=== PATIENT | female | born 1960 | race Caucasian/White ===

== ENCOUNTER 2023-09-24 05:04 | Observation (INO) ==
--- NOTE | 2023-09-03 11:45 | PAT Medication Instructions ---
Medication Instructions Date of Service September 03, 2023 Home Medications Medication Instructions Recorded Ebenezer Willard #1 ea 08/15/23 ascorbic acid (vitamin C) 250 mg chewable tablet 250 mg PO DAILY esomeprazole magnesium 40 mg capsule,delayed release 40 mg PO QAM evolocumab 140 mg/mL subcutaneous pen injector (Repatha SureClick) 140 mg subcut .q month krill 500 mg-omega-3 150 mg-dha 45 mg-epa 75 at-iudtusj-eqztk capsule 1 cap PO BID lysine 1,000 mg tablet 1,000 mg PO DAILY mecobalamin (vitamin B12) 5,000 mcg chewable tablet 5,000 mcg PO DAILY multivitamin (Daily Multi-Vitamin tablet) 1 tab PO DAILY zinc acetate 25 mg (zinc) capsule 25 mg PO DAILY COLLAGEN - BIOTIN 1 dose PO UD amino acids (Amino Acid capsule) 1 cap PO UD aspirin 81 mg tablet,delayed release 81 mg PO BID ASK your prescriber and surgeon evolocumab 140 mg/mL subcutaneous pen injector (Repatha SureClick) 140 mg subcut .q month aspirin 81 mg tablet,delayed release 81 mg PO BID STOP taking 2 weeks before surgery krill 500 mg-omega-3 150 mg-dha 45 mg-epa 75 yq-kxpchjg-kyprb capsule 1 cap PO BID lysine 1,000 mg tablet 1,000 mg PO DAILY COLLAGEN - BIOTIN 1 dose PO UD amino acids (Amino Acid capsule) 1 cap PO UD (unless directed otherwise by surgeon) DO NOT take the morning of surgery ascorbic acid (vitamin C) 250 mg chewable tablet 250 mg PO DAILY mecobalamin (vitamin B12) 5,000 mcg chewable tablet 5,000 mcg PO DAILY multivitamin (Daily Multi-Vitamin tablet) 1 tab PO DAILY zinc acetate 25 mg (zinc) capsule 25 mg PO DAILY Take morning of surgery With a small sip of water, OTHERWISE NOTHING TO EAT OR DRINK AFTER MIDNIGHT: esomeprazole magnesium 40 mg capsule,delayed release 40 mg PO QAM Other Notes If you have any questions please call us at [phone] or [phone] or [phone] or [phone]
--- NOTE | 2023-09-08 10:53 | Anesthesiology Consultation ---
Date of Service September 08, 2023 Assessment & Plan (1) Encounter for pre-operative examination: - Infectious disease screening: Per assessment on 09/08/23: No known infectious disease contacts or current infectious disease symptoms in past 10+ days. No noted recent Covid positive test result. - Outpatient joint assessment: Pt currently scheduled for inpatient pathway. If surgeon requests review for outpatient joint pathway, patient is an acceptable candidate for outpatient joint program from anesthesia standpoint pending surgeon's office assessment that patient is motivated, has good support and completes [facility] Program preop requirements. - Cardiology visit (04/18/23): "Patient is here today for a 1 year follow-up.. Denies chest pain on exertion, dizziness, dyspnea on exertion, orthopnea and palpitations.. Familial hypercholesterolemia.. Family history of ischemic heart disease.. Electrocardiogram abnormal" > Echo/stress test ordered- performed 06/2023 and unremarkable. Chart Review Chart Review: Acceptable Risk for Surgery and Patient seen in Pre Admission Testing Teaching & Discussion Pre-Anesthesia Teaching/Discussion Notes: Instructed NPO after midnight before surgery,except medications with 15 cc of water. Medication instructions provided according to the PAT guidelines. History Surgery Operation Date: 09/24/23 07:15 Proposed Procedures p Left Total Hip Arthroplasty - Parveen Gomez MD Height/Weight Height: 5 ft 2 in Weight: 76.1 kg Allergies Allergy/AdvReac Type Severity Reaction Status Date / Time adhesive Allergy Intermediate RASH Verified 09/02/23 08:02 Bactrim Allergy Intermediate RASH Unverified 10/26/10 10:40 clarithromycin Allergy Intermediate RASH Verified 09/02/23 08:02 latex Allergy Intermediate RASH Verified 09/02/23 08:02 morphine Allergy Intermediate HIVES Verified 09/02/23 08:02 Penicillins Allergy Intermediate HIVES Verified 09/02/23 08:02 sulfamethoxazole [Bactrim] Allergy Intermediate RASH Verified 09/02/23 08:02 trimethoprim [Bactrim] Allergy Intermediate RASH Verified 09/02/23 08:02 omeprazole Allergy Unknown ITCHY SCALP Verified 09/02/23 08:02 pantoprazole Allergy Unknown ITCHY SCALP Verified 09/02/23 08:02 Medications Home Medications Medication Instructions Recorded Confirmed Last Taken ascorbic acid (vitamin C) 250 mg 250 mg PO DAILY 05/01/23 09/02/23 Unknown chewable tablet esomeprazole magnesium 40 mg 40 mg PO QAM 05/01/23 09/02/23 Unknown capsule,delayed release evolocumab 140 mg/mL subcutaneous 140 mg subcut .q month 05/01/23 09/02/23 Unknown pen injector (isajoseph Cantu) krill 500 mg-omega-3 150 mg-dha 45 1 cap PO BID 05/01/23 09/02/23 Unknown mg-epa 75 lz-eresqgt-pnjnh capsule lysine 1,000 mg tablet 1,000 mg PO DAILY 05/01/23 09/02/23 Unknown mecobalamin (vitamin B12) 5,000 5,000 mcg PO DAILY 05/01/23 09/02/23 Unknown mcg chewable tablet multivitamin (Daily Multi-Vitamin 1 tab PO DAILY 05/01/23 09/02/23 Unknown tablet) zinc acetate 25 mg (zinc) capsule 25 mg PO DAILY 05/01/23 09/02/23 Unknown COLLAGEN - BIOTIN 1 dose PO UD 05/20/23 09/02/23 Unknown Wheeled Walker #1 ea 08/15/23 09/02/23 Unknown amino acids (Amino Acid capsule) 1 cap PO UD 09/02/23 09/02/23 Unknown aspirin 81 mg tablet,delayed 81 mg PO BID 09/02/23 09/02/23 Unknown release Advil 400 mg PO DIRECTED PRN Pain 09/08/23 09/08/23 Unknown Past Medical History Medical History GERD (gastroesophageal reflux disease) History of COVID-19 2020- PNA > resolved Hyperlipemia Taking Repatha Bilateral hip joint arthritis Exercise / Class Metabolic Activity II 4-5 Yardwork/Stairs/Walk up hill Past Family History Family History Mother Diabetes Father Diabetes Grandmother (Paternal) Colon cancer Past Surgical History Surgical History Nausea and vomiting after administration of anesthetic agent History of bladder surgery sling History of colonoscopy History of tonsillectomy History of hernia repair History of wisdom tooth extraction History of hysterectomy History of total left knee replacement History of total right knee replacement History of varicose vein ligation Past Anesthesia History No Hx of Anesthesia Complications and No Family Hx of Anesthesia Complications History of PONV No Hx of Motion Sickness and History of PONV Social History Smoking Status: Never smoker Do You Dip or Chew Tobacco: No Hx Alcohol Use: No Hx Substance Use: No substance use type: does not use Review of Systems Patient denies chest pain, shortness of breath, dyspnea on exertion, fever, chills, cough, wheezing, palpitations. Physical Exam Vital Signs VITALS BP 124/80 P 67 TEMP 98.0 SP02 97%RA RESP 18 PHYSICAL Full cervical extension range of motion. Full TMJ range of motion. TMD 3 finger breaths Mallampati Score 2 Dentition: right lower side missing Lungs: clear throughout to auscultation Cardiac: regular rate and rhythm, no murmurs noted Spine: normal Carotid arteries: negative bruit Extremities: no LE edema Lab Results Anesthesia Preop Results Results Anesthesia Widget: WBC 5.12 K/ul (4.8-10.8) 09/08/23 Hgb 12.8 g/dl (12.0-16.0) 09/08/23 Hct 37.5 % (37.0-47.0) 09/08/23 Plt 273 K/uL (130-400) 09/08/23 Na 140 mmol/L (136-145) 09/08/23 K 3.8 mmol/L (3.5-5.1) 09/08/23 Cl 105 mmol/L (98-107) 09/08/23 CO2 29 mmol/L (21-32) 09/08/23 BUN 15 mg/dl (6-23) 09/08/23 Creat 0.62 mg/dl (0.6-1.2) 09/08/23 Glucose Level 93 mg/dl (70-99(Fasting)) 09/08/23 PT 10.5 Seconds (9.0-12.0) 09/08/23 PTT 27 Seconds (21-31) 09/08/23 INR 1.0 (0.9-1.1) 09/08/23 Blood Type A Positive 09/08/23 Antibody Screen NEGATIVE 09/08/23 Testing Electrocardiogram Date: 04/18/23 SR at 80bpm. Horizontal axis. Anterolateral infarct. Minimal mid-precordial repolarization disturbance secondary to infarct. Flat or low negative T in V3 V4 V5 Subsequent cardiology-ordered Echo and stress test done 06/2023* Chest X-Ray Date: 09/08/23 FINDINGS: Cardiomediastinal and hilar silhouettes are within normal limits. No pneumothorax, pleural effusion or airspace consolidation. Bones appear grossly intact. IMPRESSION: No acute process. Echocardiogram Date: 07/04/23 EF 55%. Borderline concentric LVH. Mild AI/TI. Normal pulmonary artery pressures. Stress Test Date: 07/04/23 Based upon EKG criteria, this test is negative. Based upon nuclear imaging findings there is no evidence of myocardial ischemia or infarction.
--- NOTE | 2023-09-21 09:04 | History & Physical Report ---
Date of Service September 21, 2023 Assessment & Plan (1) Bilateral hip joint arthritis: 63-year-old female with a history of bilateral bilateral knee replacements done over a decade ago with a bilateral hip arthritis left side bit worse than the right. She is failed conservative treatment. She like to proceed with hip replacement. Plan: Continue with left total hip replacement. The risks Mente this procedure explained the patient clued but not limited to DVT PE infection neurological and vascular bleeding palm pain limb range of motion sepsis fairly with symptoms incomplete relief of symptoms fracture leg length inequality, dislocation, etc. The patient understands and desires to proceed. Informed consent was obtained. We will have to make some measurements that she is probably going to need her right hip done in the ktj-wre-dwstchx future. She is planned to stay in the hospital overnight and likely discharge postop day 1 if she is doing okay. Will plan on dad DVT prophylaxis including thigh-high teds, SCDs, aspirin twice a day. She is can use energy physical therapy. History of Present Illness Chief Complaint: . Bilateral hip pain and discomfort left side greater than the right. Primary Care Provider: Aresnio Schaffer . Patient is a 63-year-old female well-known to me from previous knee replacements done over a decade ago. She is got about a year history of gradually increasing progressive hip pain discomfort left side bit worse than right. Describes lateral hip pain groin pain thigh pain rating down to her knee. We tried some injections in the bursa which really did not help much at all. Pain has become more disabling. Is mostly groin and thigh pain. She limps more as the day goes on. She now like to have her left hip replaced. She does have a history of knee replacements on both sides for the left side was done 13 years ago the right side 11 years ago. Allergies Allergy/AdvReac Type Severity Reaction Status Date / Time adhesive Allergy Intermediate RASH Verified 09/02/23 08:02 Bactrim Allergy Intermediate RASH Unverified 10/26/10 10:40 clarithromycin Allergy Intermediate RASH Verified 09/02/23 08:02 latex Allergy Intermediate RASH Verified 09/02/23 08:02 morphine Allergy Intermediate HIVES Verified 09/02/23 08:02 Penicillins Allergy Intermediate HIVES Verified 09/02/23 08:02 sulfamethoxazole [Bactrim] Allergy Intermediate RASH Verified 09/02/23 08:02 trimethoprim [Bactrim] Allergy Intermediate RASH Verified 09/02/23 08:02 omeprazole Allergy Unknown ITCHY SCALP Verified 09/02/23 08:02 pantoprazole Allergy Unknown ITCHY SCALP Verified 09/02/23 08:02 Home Medications Medication Instructions Recorded Confirmed Type ascorbic acid (vitamin C) 250 mg 250 mg PO DAILY 05/01/23 09/02/23 History chewable tablet esomeprazole magnesium 40 mg 40 mg PO QAM 05/01/23 09/02/23 History capsule,delayed release evolocumab 140 mg/mL subcutaneous 140 mg subcut .q month 05/01/23 09/02/23 History pen injector (Karoline Cantu) krill 500 mg-omega-3 150 mg-dha 45 1 cap PO BID 05/01/23 09/02/23 History mg-epa 75 mv-vqygzbb-jmqxq capsule lysine 1,000 mg tablet 1,000 mg PO DAILY 05/01/23 09/02/23 History mecobalamin (vitamin B12) 5,000 5,000 mcg PO DAILY 05/01/23 09/02/23 History mcg chewable tablet multivitamin (Daily Multi-Vitamin 1 tab PO DAILY 05/01/23 09/02/23 History tablet) zinc acetate 25 mg (zinc) capsule 25 mg PO DAILY 05/01/23 09/02/23 History COLLAGEN - BIOTIN 1 dose PO UD 05/20/23 09/02/23 History Wheeled Walker #1 ea 08/15/23 09/02/23 Rx amino acids (Amino Acid capsule) 1 cap PO UD 09/02/23 09/02/23 History aspirin 81 mg tablet,delayed 81 mg PO BID 09/02/23 09/02/23 History release Advil 400 mg PO DIRECTED PRN Pain 09/08/23 09/08/23 History Past Med/Surg History Medical History GERD (gastroesophageal reflux disease) History of COVID-19 2020- PNA > resolved Hyperlipemia Taking Repatha Bilateral hip joint arthritis Surgical History Nausea and vomiting after administration of anesthetic agent History of bladder surgery sling History of colonoscopy History of tonsillectomy History of hernia repair History of wisdom tooth extraction History of hysterectomy History of total left knee replacement History of total right knee replacement History of varicose vein ligation Family History Mother Diabetes Father Diabetes Grandmother (Paternal) Colon cancer Social History Smoking Status: Never smoker Second Hand Exposure: No; Do You Dip or Chew Tobacco: No; Hx Alcohol Use: No Hx Substance Use: No Preferred Language: Niuean Communication Ability: Effective [place]agli[place] Mechanic Required: No Beliefs That Will Affect Care: None Current Living Situation: Spouse Feels Safe at Home: Yes Assistive Devices: Glasses Review of Systems All systems reviewed & are unremarkable except as noted in HPI & below. Physical Exam . Physical examination reveals a pleasant middle-age female. Walks with a bit of a waddling gait. Leg lengths clinically appear pretty equal. She got stiffness and pain with hip motion on both sides. She can internally rotate to neutral about both sides. Negative straight leg raise. Knee incisions are healed nicely without signs of swelling. She is neurologically intact. Constitutional WD/WN, vitals as above Neck trachea midline, no thyromegaly Respiratory normal respiratory effort, lungs clear to auscultation Cardiovascular RRR, no murmur, no edema Gastrointestinal (Abdomen) normal bowel sounds, soft, nontender, no hepatosplenomegaly Results & Data Results & Data Laboratory Results . Diagnostic Findings . X-rays of both hips were reviewed. It shows advanced hip arthritis left side bit worse than the right. Got complete loss of the joint space on the left side. Not much osteophyte formation. She does have quite a bit of offset with a varus alignment to her neck. PG Care Time/CCT Total # of Minutes Spent Total Time Spent with Patient: Total time spent is greater than 50% in coordination of care (as documented) at patient's floor/unit and/or counseling patient: Coding Level of Care Code None Diagnoses Bilateral hip joint arthritis M16.0
[~2023-09-24 05:04] MED LIST: ALLERGY Noted to ORDERED Medication SCH
[2023-09-24] MEDS ORDERED: TRANEXAMIC ACID 1,000 MG **IV Pre-op IV SCH (06:00)
[2023-09-24] MEDS ORDERED: LR 60ML/HR IV SCH (06:00)
[2023-09-24] MEDS ORDERED: METOCLOPRAMIDE HCL 10 MG TABLET PO SCH (06:00)
[2023-09-24] MEDS ORDERED: ACETAMINOPHEN 500 MG TAB PO SCH (06:00)
[2023-09-24] MEDS ORDERED: Scopolamine 1 MG TDSY TD SCH (06:00)
[2023-09-24] MEDS ORDERED: CeleBREX 200 MG CAP PO SCH (06:00)
[2023-09-24] MEDS ORDERED: FAMOTIDINE 20 MG TAB PO SCH (06:00)
[2023-09-24] MEDS ORDERED: LR 500ML BOLUS, THEN 15ML/HR IV SCH (06:00)
[2023-09-24] MEDS ORDERED: dexAMETHasone**PF** 10 MG/ML VIAL IV SCH (06:00)
[2023-09-24] MEDS ORDERED: BUPIVACAINE 0.5 % 5 MG/1 ML PF 10ML VIAL ONE (06:11)
[2023-09-24] MEDS ORDERED: LIDOCAINE 2% 2 ML VIAL/AMP(20MG/ML) INFIL ONE (06:32)
[2023-09-24] MEDS ORDERED: PROPOFOL IV EMULSION 10 MG/ML 20 ML VIAL IV ONE (06:32)
[2023-09-24] MEDS ORDERED: MIDAZOLAM HCL 1 MG/ML 2ML VIAL ONE ×2 (06:32→07:34)
[2023-09-24] MEDS ORDERED: fentaNYL citrate PF 100 MCG/2 ML VIAL ONE (06:33)
[2023-09-24] MEDS ORDERED: fentaNYL citrate PF 100 MCG/2 ML VIAL IV PRN (06:35)
[2023-09-24] MEDS ORDERED: ONDANSETRON INJ 2 MG/ML 2 ML VIAL IV PRN ×2 (06:35→09:45)
[2023-09-24] MEDS ORDERED: ATROPINE SULFATE 0.1 MG/ML 10ML SYR IV PRN (06:35)
[2023-09-24] MEDS ORDERED: ePHEDrine sulfate 50 MG/ML AMP IV PRN (06:35)
[2023-09-24] MEDS ORDERED: ceFAZolin 2,000 MG/15 ML IV PUSH IV ONE (06:46)
--- NOTE | 2023-09-24 06:53 | History & Physical Bridge Note ---
Date of Service September 24, 2023 History & Physical Bridge Note I have examined the patient, reviewed the History & Physical and in the interval since the performance of the History & Physical I have noted the following changes of clinical significance: no changes noted
[2023-09-24] MEDS ORDERED: BUPIVACAINE/EPINEPHRINE 0.5% MPF 1:200,000 30 ML VIAL ONE (06:55)
[2023-09-24] MEDS ORDERED: ePHEDrine sulfate 50 MG/ML AMP ONE (07:38)
[2023-09-24] MEDS ORDERED: ONDANSETRON INJ 2 MG/ML 2 ML VIAL ONE (07:38)
[2023-09-24] MEDS ORDERED: PHENYLEPHRINE 100MCG/ML 10ML SYR IV ONE (07:55)
--- NOTE | 2023-09-24 08:47 | Operative Report ---
PG Post Operative Report Pre & Post Diagnosis Operation Date: 09/24/23 07:00 Pre-Op Diagnosis: Left Hip Advanced Degenerative Joint Disease Post-Op Diagnosis: Left Hip Advanced Degenerative Joint Disease I identified the patient and participated in the time-out.: Yes Procedure Operation Date: 09/24/23 07:00 Actual Procedures p Left Total Hip Arthroplasty--Uncemented(Left) - Parveen Gomez MD Surgeon Parveen Gomez MD Assurance Manager Insurance Clayton Gabriel PA-C Estimated Blood Loss 200 Findings Consistent with Post-Op Diagnosis Operative findings were advanced left hip DJD. She had extensive grade 4 buif-kb-uqkx disease of the femoral head and acetabulum. Some small acetabular osteophytes. Moderate-sized joint effusion. Specimens Left femoral head sent for pathology. Anesthesia Type Spinal MAC Complications none Disposition Accompanied Patient To Recovery: No Indications Patient is a 63-year-old female who has had a host of orthopedic issues inside both knees replaced in the past. Over the past several years she has developed increased pain discomfort both hips left side bit worse than right. She failed conservative measures. She elected proceed with total hip arthroplasty. Description of Procedure Operative implants consist of: 1 Biomet G7 size 48 mm acetabular shell. 2. 6.5 cancellous acetabular screws 1 at 35 mm length 1 to 20 mm length. 3. [place] hole eliminator. 4. Highly cross-linked polyethylene liner with a 48 mm outer diameter 32 mm inner diameter. 5. DePuy Corail a size 9 KLA femoral stem. 6. +5/32 mm ceramic articular ball. The patient was taken to the operating, identified, placed on the operating table in supine and supine position. All contractors were properly padded. IV antibiotics provided by anesthesia team. A spinal anesthetic had been implemented holding area. Gallegos catheter was placed in sterile fashion. The patient then placed in the right lateral decubitus position. An axillary roll was placed. Distal Birkett position was used for positioning. The left hip and leg were then prepped and draped in usual sterile fashion. A posterolateral approach to the left hip was then performed to a curvilinear i ncision centered over the greater trochanter. Sharp dissection scalp through subcutaneous tissue down of the IT band gluteal fascia the IT band gluteal fascia was sized longitudinally in line with skin incision. The underlying greater bursa was excised. The piriformis and external rotators along with the posterior hip joint capsule were released from the posterior aspect of the hip as a single layer. Great care was taken throughout the procedure protect the sciatic nerve at all times. Hip was internally rotated and dislocated. Femoral neck osteotomy cut was made with a Final Cut about 5 mm above the lesser trochanter. Femoral head was removed and sent for pathology. The femur was retracted anteriorly. Attention drawn the acetabulum. The acetabular labrum was excised. The pulmonary fat was excised. Sequential reaming the acetabular was then performed again with size 43 and progressing up to 47. I did ream a little bit with a 48 reamer and then placed a 48 mm Biomet G7 acetabular shell in about 40 degrees lateral opening and 20 degrees anteversion. It was fixed with two 6.5 cancellous acetabular screws. Trial liner was placed. Attention drawn the femur. The proximal femur was then with a Blueliv cutter followed by canal finder. I then broached beginning with an 8. We trialed the hip with several options. Her distal canal was very narrow. Gait had a snug fit. She had a lot of offset so I wanted to try and get to a standard KLA stem with 125 degree angle to increase offset. Therefore we broached up to a 9. We could not quite get the implant the whole way down and was left about a millimeter proud. I trialed the hip and the +5 articular ball seem to recreate appropriate soft tissue tension. It was fully stable full extension and external rotation flexion to 90 degrees internal Tatian to 50+ degrees. Leg lengths were equal. I elected to place these implants. Nupathe all trial implants were removed. [place] maintenance electrician was placed. Highly cross-linked polyethylene liner was placed. A size 9 KLA femoral stem was impacted in position. Once again we left this about a millimeter proud. A +5/32 mm articular ball was then placed. The hip was locat ed and once again found to be stable. Attention drawn toward closing. The wound was irrigated coconuts pulsatile lavage solution. I did inject locally with 60 cc of half percent Marcaine with epinephrine. The posterior capsule and external rotators were then repaired through drill holes in the posterior trochanter with #2 Tycron suture. The IT band gluteal fascia then closed in 1 PDS in running fashion for subcutaneous tissue then closed with 2 Dexon suture in a buried interrupted fashion. Skin was closed skin anirudh. A sterile dressing was Xeroform, 4 fours, ABD pad and foam tape was applied. The patient then transferred to the recovery room in stable condition. Patient tolerated the procedure well and there were no complications. Clayton Gabriel, my physician hotel administrative assistant, was present for the entire procedure. His assistance was essential and required for appropriate patient positioning, prepping and draping, surgical exposure, performing the technical details of the operation, placement the implants, closure of the wound, and placement of the sterile bandage. I attest to the content of the Intraoperative Record and any orders documented therein. Any exceptions are noted below.
[2023-09-24] MEDS ORDERED: traMADol HCL 50 MG TABLET PO PRN (09:45)
[2023-09-24] MEDS ORDERED: MAGNESIUM HYDROXIDE SUSP 30 ML UDC PO PRN (09:45)
[2023-09-24] MEDS ORDERED: COLLAGEN BIOTIN PO SCH (09:45)
[2023-09-24] MEDS ORDERED: ASCORBIC ACID 250 MG PO SCH (09:45)
[2023-09-24] MEDS ORDERED: SODIUM CHLORIDE 0.9% 1,000 ML IV SCH (09:45)
[2023-09-24] MEDS ORDERED: NALOXONE HCL 0.4 MG/1 ML VIAL/CARP IV PRN (09:45)
[2023-09-24] MEDS ORDERED: diphenhydrAMINE Capsule 25 MG CAP PO PRN (09:45)
[2023-09-24] MEDS ORDERED: METOCLOPRAMIDE HCL INJ 5 MG/ML 2 ML VIAL IV PRN (09:45)
[2023-09-24] MEDS ORDERED: HYDROmorphone INJ 0.5 MG/0.5 ML SYR IV PRN (09:45)
[2023-09-24] MEDS ORDERED: SENNA 8.6 MG TAB PO SCH ×2 (09:45→21:00)
[2023-09-24] MEDS ORDERED: NON-FORMULARY MEDICATION (Multivitamin [Daily Multi-Vitamin] tablet) PO SCH (09:45)
[2023-09-24] MEDS ORDERED: ALUMINUM/MAGNESIUM SUSP 30 ML UDC PO PRN (09:45)
[2023-09-24] MEDS ORDERED: bisacodyL 10 MG SUPP PR PRN (09:45)
[2023-09-24] MEDS ORDERED: KRILL OM DHA EPA PHOSPHO AST PO SCH (09:45)
[2023-09-24] MEDS ORDERED: NON-FORMULARY MEDICATION (Amino Acids [Amino Acid] Capsule) PO SCH (09:45)
[2023-09-24] MEDS: CYANOCOBALAMIN (B-12) 2,500 MCG TABLET SL SCH (10:30)
[2023-09-24] MEDS: PANTOprazole 40 MG TAB PO SCH (10:32)
[2023-09-24] MEDS: MULTIVITAMIN TAB PO SCH (11:03)
[2023-09-24] MEDS: DOCUSATE SODIUM 100 MG CAP PO SCH ×2 (11:03→20:40)
[2023-09-24] MEDS: ASPIRIN 81 MG ECTAB PO SCH ×2 (11:03→20:40)
--- NOTE | 2023-09-24 11:12 | XRay Report ---
XR hip 1V LT w pelvis CLINICAL HISTORY: Postoperative evaluation. COMPARISON: Left hip radiographs May 01, 2023. FINDINGS: Alignment of the total left hip arthroplasty is anatomic. There is no periprosthetic fract ure or unexpected radiopaque foreign body. There are acetabular screws and skin anirudh. Right hip lilian int space narrowing with osteophytosis is present. IMPRESSION: Expected findings following total left hip arthroplasty. ACT 112: Negative or not required by law. Electronically signed by: Luis Colindres M.D. 09/24/2023 11:10 AM
[2023-09-24] MEDS: ZINC SULFATE 220 MG CAPSULE PO SCH (11:43)
[2023-09-24] MEDS: KETOROLAC 30 MG/ML VIAL IV SCH ×3 (11:43→23:01)
--- NOTE | 2023-09-24 12:19 | Anesthesiology Progress Note ---
Date of Service September 24, 2023 Anesthesia Post Procedure Vital Signs Vital Signs: Temp Pulse Pulse Resp BP Pulse Ox O2 Del Method 09/24/23 11:15 98.2 F 80 18 116/62 98 Room Air 09/24/23 10:08 72 18 110/70 96 Room Air 09/24/23 09:45 97.5 F L 72 18 118/72 96 Room Air 09/24/23 09:25 97.3 F L 68 15 130/66 97 Room Air 09/24/23 09:15 97.3 F L 62 16 119/67 95 Room Air 09/24/23 09:05 63 16 119/52 L 99 Room Air 09/24/23 08:55 70 19 120/56 L 99 Oxymask 09/24/23 08:45 74 16 123/57 L 97 Oxymask 09/24/23 08:36 97.5 F L 73 16 125/61 97 Oxymask 09/24/23 05:50 98.2 F 68 18 154/75 H 95 Room Air O2 Flow Rate 09/24/23 11:15 09/24/23 10:08 09/24/23 09:45 09/24/23 09:25 09/24/23 09:15 09/24/23 09:05 09/24/23 08:55 1 09/24/23 08:45 3 09/24/23 08:36 5 09/24/23 05:50 Transfer of Care Handoff Completed per policy Notes Mental Status: alert / awake / arousable and participated in evaluation Patient Amnestic to Procedure: Yes Nausea / Vomiting: adequately controlled Pain: adequately controlled Airway Patency, RR, SpO2: stable & adequate BP & HR: stable & adequate Hydration State: stable & adequate Neuraxial Anesthesia: was administered and sensory block is resolving Anesthetic Complications: no major complications apparent and Pt Satisfied with anesthetic care
[2023-09-24] MEDS: ACETAMINOPHEN 500 MG TAB PO SCH ×2 (13:13→23:00)
[2023-09-24] MEDS ORDERED: TRANEXAMIC ACID / 0.7% NACL 1,000 MG/100 ML BAG IV SCH (15:00)
[2023-09-24] MEDS: ceFAZolin 1000MG 1,000 MG/7.5 ML SYR IV SCH ×2 (16:59→23:00)
[2023-09-24] MEDS: Scopolamine CHECK PATCH PLACEMENT SCH ×2 (16:59→23:04)
[2023-09-24] MEDS: ASCORBIC ACID 500 MG TAB PO SCH (17:01)
[2023-09-25] MEDS: KETOROLAC 30 MG/ML VIAL IV SCH (05:05)
[2023-09-25] MEDS: ACETAMINOPHEN 500 MG TAB PO SCH (05:05)
[2023-09-25 07:27] LABS: Basophils # (auto) 0.02 K/uL (0.00-0.20); Basophils % (auto) 0.2 %; Hematocrit (blood only) 32.2 % (37.0-47.0); Hemoglobin 10.7 g/dl (12.0-16.0); Immature Granulocytes # (auto) 0.06 K/uL (0.01-0.20); Immature Granulocytes % (auto) 0.6 %; Lymphocytes # (auto) 1.57 K/uL (1.20-3.40); Lymphocytes % (auto) 15.3 %; Mean Corpuscular Hemoglobin 30.8 pg (25.0-34.0); Mean Corpuscular Hgb Conc 33.2 g/dL (32.0-36.0); Mean Corpuscular Volume 92.8 fL (80.0-100.0); Mean Platelet Volume 10.6 fL (9.4-12.4); Monocytes # (auto) 0.88 K/uL (0.11-0.59); Monocytes % (auto) 8.6 %; Neutrophils # (auto) 7.72 K/uL (1.40-6.50); Neutrophils % (auto) 75.3 %; Platelet Count 241 K/uL (130-400); RDW Coefficient of Variation 12.8 % (11.5-14.5); RDW Standard Deviation 43.4 fL (36.4-46.3); Red Blood Count 3.47 M/uL (4.20-5.40); White Blood Count 10.25 K/ul (4.8-10.8)
--- NOTE | 2023-09-25 07:35 | Orthopedic Progress Note ---
Date of Service September 25, 2023 Assessment & Plan (1) Status post left hip replacement: Overall she is doing quite well today with good pain control to the left hip. She will work with physical therapy later today to work on ambulation and range of motion exercises. She is on aspirin for DVT prophylaxis. She can be discharged home later today after her physical therapy evaluation. She will follow-up in [address] Gomez for postoperative care. Kirsten Sauer was seen and evaluated at bedside this morning resting comfortably in no apparent distress. She notes that she has been up and out of bed and ambulating back and forth from bed to chair with no issues. She has yet to work with physical therapy as of this morning. She denies any other concerns at this time. Review of Systems All systems reviewed & are unremarkable except as noted in HPI & below. Physical Exam . On physical examination of the left hip, dressings are in place, clean, dry, and intact with Prevena maintaining negative pressure. Her left leg is out in full extension. She has active plantarflexion dorsiflexion to the left ankle. +2 DP and PT pulses. Less than 2-second capillary refill. Normal sensation. Neurovascular intact. Results & Data Results & Data Laboratory Results . Diagnostic Findings . Postoperative x-rays of the left hip show the prosthesis to be in anatomical alignment with no signs of fracture complication or loosening. PG Care Time/CCT Total # of Minutes Spent Total Time Spent with Patient: Total time spent is greater than 50% in coordination of care (as documented) at patient's floor/unit and/or counseling patient: Coding Level of Care Code 82726 Post Operative Follow-Up Diagnoses Status post left hip replacement Z96.642
--- NOTE | 2023-09-25 07:37 | Discharge Summary ---
Date of Service September 25, 2023 Admission HPI (Per Admitting) . Patient is a 63-year-old female well-known to me from previous knee replacements done over a decade ago. She is got about a year history of gradually increasing progressive hip pain discomfort left side bit worse than right. Describes lateral hip pain groin pain thigh pain rating down to her knee. We tried some injections in the bursa which really did not help much at all. Pain has become more disabling. Is mostly groin and thigh pain. She limps more as the day goes on. She now like to have her left hip replaced. She does have a history of knee replacements on both sides for the left side was done 13 years ago the right side 11 years ago. Admission Exam (Per Admitting) . Physical examination reveals a pleasant middle-age female. Walks with a bit of a waddling gait. Leg lengths clinically appear pretty equal. She got stiffness and pain with hip motion on both sides. She can internally rotate to neutral about both sides. Negative straight leg raise. Knee incisions are healed nicely without signs of swelling. She is neurologically intact. Principal Diagnosis Same as "Discharge Diagnosis" noted below under Discharge Instructions. Discharge Exam . On physical examination of the left hip, dressings are in place, clean, dry, and intact with Prevena maintaining negative pressure. Her left leg is out in full extension. She has active plantarflexion dorsiflexion to the left ankle. +2 DP and PT pulses. Less than 2-second capillary refill. Normal sensation. Neurovascular intact. Discharge Data Procedures Performed Operation Date: 09/24/23 07:00 Actual Procedures p Left Total Hip Arthroplasty--Uncemented(Left) - Parveen Gomez MD Hospital Course (1) Status post left hip replacement: On September 24, 2023 Cristiane arrived at [facility] and underwent a left total hip arthroplasty without complications. She had a spinal anesthetic. Postoperatively, she was started on aspirin for DVT prophylaxis and transferred to the general orthopedic floor in stable condition. Her hospital course was uneventful. On postoperative day #1, her vital signs were stable and her pain was well-controlled. She participated well with physical therapy doing ambulation and range of motion exercises. She was discharged home in stable condition. She is going to follow-up in [address] Gomez for postoperative care. PG Care Time/CCT Total # of Minutes Spent Total Time Spent with Patient: Total time spent is greater than 50% in coordination of care (as documented) at patient's floor/unit and/or counseling patient: Discharge Plan Discharge Items Patient Disposition: Home - Home Health Services Reason For Visit: Left Hip DJD Discharge Diagnosis: Left Hip Replacement Activity: Per Instructions section Activity Comment: Follow/Obey hip precautions at all times Weightbearing: Full weightbearing Weightbearing Comment: Weightbear as tolerateld obeying hip precautions at all times. Non-emergency contact: Surgeon Call non-emergency contact if: you have any medication questions Follow-up/Referrals: Arsenio Schaffer D.O. [Primary Care Provider] - Diet: Regular Addtl Attending Provider Instructions: ACTIVITY RECOMMENDATIONS: Physical Therapy: * Aggressive physical therapy is not usually needed. You will learn to take care of yourself safely and walk. * Follow the "Hip Precautions Instructions." * In some cases, the 7th grade social studies teacher at the hospital will arrange to have a therapist come to your house for the first couple of weeks to help you learn these skills. * You need to practice on your own or with the help of a family member as needed. * When you learn these skills, most of the therapy can be done on your own. Home Exercise: * You were shown a series of exercises in the hospital. Do these exercises three to four times each day including the exercises you were shown in professor of physical education apy. Walking: * Get up and walk several times each day. For the first four weeks, try not to stand or walk for more than one hour at a time. If you do stand or walk for more than one hour, you will not hurt anything, but your leg will likely swell. * As you feel comfortable, you may change from the walker or crutches to a cane and then to independent walking. MEDICATIONS: New Medicine: * You will likely be taking one or more of these medicines: 1. Tramadol - Take, as directed, when you need it, every six hours to control your pain. 2. Aspirin - Thins your blood to lessen the chance of forming a blood clot. * The most common side effects of pain medicine and iron are nausea and constipation. If nausea or constipation is too much of a problem or if you have any questions about your new medicines or doses, call [facility] at . We will try to help you manage these issues. "VERY IMPORTANT TO READ AND REVIEW" Pain: * The immediate post-operative period after hip replacement surgery is often quite painful. * You are given a prescription for pain medicine. You should take it, as directed, when you need it, especially before physical therapy and before going to bed. Pain that interferes with sleep is very common and can last several months. * You will likely need pain medicine for the first two to four weeks. It will not stop all of the pain. The pain will lessen and as you feel better, you may change to milder pain medicine such as Tylenol. * The most common side effects of pain medicine are nausea and constipation, so don't take more than you need. SPECIAL CARE INSTRUCTIONS: TEDs/Elastic Stockings: * The white elastic stockings help limit swelling and prevent blood clots from forming in your legs. The more you wear them, the more they work. * Wear them for six weeks. Incision Site Care: * Remove dressing postoperative day 8 and then shower. Keep direct shower pressure off the incision site. * After showering, cover anirudh with dry gauze and change daily or more frequently if the dressing is getting saturated with drainage. * May completely stop using bandage if wound is dry and no drainage * Henrietta are removed between 2 and 3 weeks post-op. If your follow-up appointment is made before 2 weeks, please have your appointment re- scheduled. It is too early to remove the anirudh. Prevention of Infection: * Take antibiotics one hour before any dental cleaning, dental work, urological procedure, gastrointestinal procedure or any invasive surgery in order to prevent your new joint from getting infected. * You may get the antibiotics from the doctor performing the procedure or you may call our office at before and we will call in a prescription to the pharmacy of your choice. Things to Watch For: * Drainage from the incision site that occurs more than one week after your surgery. * Severely increased leg pain or swelling. * Increased redness at the incision site. * Fever above 102 degrees Fahrenheit. * Unusual chest pain or shortness of breath. * Unusual pain or burning with urination. Call [facility] at with any of the above problems or if you have any questions about your medicines or recovery. FOLLOW UP VISIT: Make an appointment to see your doctor for approximately two weeks after surgery for a progress check and staple removal by calling the office at . Pending Studies at Discharge: No Stand-Alone Forms: My [facility], Smoking Cessation Medications and DC Order Prescriptions: Continued (DME) [facility] See Rx Instructions .MEDSUPPLY Qty: 1 0RF Rx Instructions: As directed tramadol 50 mg tablet 50 - 100 mg PO Q6 PRN (Reason: pain) Qty: 40 0RF Rx Instructions: Take as needed for pain ondansetron 4 mg tablet,disintegrating 4 mg PO Q8 PRN (Reason: nausea) Qty: 20 1RF Rx Instructions: Take as needed for nausea ketorolac 10 mg tablet 10 mg PO Q6 PRN (Reason: pain) 5 Days Qty: 20 0RF Rx Instructions: Take 4 times per day with food for 5 days to lessen pain and swelling. sennosides [Senokot] 8.6 mg tablet 8.6 mg PO BID 14 Days Qty: 28 0RF Rx Instructions: Take two times a day to prevent/treat constipation acetaminophen [Tylenol Extra Strength] 500 mg tablet 1,000 mg PO TID 30 Days Qty: 180 0RF Rx Instructions: Take 3 times per day to lessen pain. aspirin [Emiliana Low Dose Aspirin] 81 mg tablet,delayed release (DR/EC) 81 mg PO BID 45 Days Qty: 90 0RF Rx Instructions: Take to prevent blood clots. Repatha SureClick 140 mg/mL pen injector 140 mg subcut .q month Patient Comments: last dose in Jun, plans for a dose today or tmrw > 09/02/23 esomeprazole magnesium [Nexium] 40 mg capsule,delayed release(DR/EC) 40 mg PO QAM multivitamin [Daily Multi-Vitamin] Tablet 1 tab PO DAILY lysine 1,000 mg tablet 1,000 mg PO DAILY [id number] mg capsule 1 cap PO BID mecobalamin (vitamin B12) 5,000 mcg tablet,chewable 5,000 mcg PO DAILY ascorbic acid (vitamin C) 250 mg tablet,chewable 250 mg PO DAILY zinc acetate 25 mg (zinc) capsule 25 mg PO DAILY COLLAGEN - BIOTIN 3,000 mg tablet 1 dose PO UD Amino Acid Capsule 1 cap PO UD Patient Comments: "pre op for up coming surgery" 09/02/23 aspirin 81 mg Tablet,Delayed Release (Dr/Ec) 81 mg PO BID Discontinued Advil 400 mg PO DIRECTED PRN (Reason: Pain) Admission Data Admit Date/Time: 09/24/23 08:44 Attending Provider: Parveen Gomez Admit Provider: Parveen Gomez Primary Care Provider: Arsenio Schaffer
[2023-09-25 07:40] LABS: BUN Creatinine Ratio 24.1 (10-20); Calcium 9.2 mg/dl (8.6-10.3); Creatinine Clr Calc Pharmacy 101.3 ml/min; Est GFR (African American) 116.4 ml/min; Est GFR (Non-African American) 100.4 ml/min; Potassium 4.1 mmol/L (3.5-5.1)
[2023-09-25] MEDS: ASCORBIC ACID 500 MG TAB PO SCH (07:59)
[2023-09-25] MEDS: Scopolamine CHECK PATCH PLACEMENT SCH (07:59)
[2023-09-25] MEDS ORDERED: dexAMETHasone 10 MG in SYRINGE 0 ML IV SCH (08:00)
[2023-09-25] MEDS: CYANOCOBALAMIN (B-12) 2,500 MCG TABLET SL SCH (08:27)
[2023-09-25] MEDS: MULTIVITAMIN TAB PO SCH (08:28)
[2023-09-25] MEDS: ASPIRIN 81 MG ECTAB PO SCH (08:28)
[2023-09-25] MEDS: DOCUSATE SODIUM 100 MG CAP PO SCH (08:28)
[2023-09-25] MEDS: PANTOprazole 40 MG TAB PO SCH (08:29)
[2023-09-25] MEDS: ZINC SULFATE 220 MG CAPSULE PO SCH (08:29)
== END 2023-09-25 10:27 | disposition home health service (06) ==
LOC: ASU 05:04 → 3E 05:04

== ENCOUNTER 2024-04-13 05:15 | Observation (INO) ==
--- NOTE | 2024-03-10 10:40 | Anesthesiology Consultation ---
Date of Service March 10, 2024 Assessment & Plan (1) Encounter for pre-operative examination: - Infectious disease screening: Per assessment on 03/10/24: No known recent infectious disease contacts or current infectious disease symptoms. - Outpatient joint assessment: Pt currently scheduled for inpatient pathway. If surgeon requests review for outpatient joint pathway, patient is an acceptable candidate for outpatient joint program from anesthesia standpoint pending surgeon's office assessment that patient is motivated, has good support and completes Same Day Joint Program preop requirements. - S/P Left RUDI (09/24/23): SAB L3-4, 1 attempt at [facility] - Cardiology visit (01/16/24): "Continue current medications.. HTN: Well controlled at present.. HLD: Slight improvement since starting Repatha, continue.. Low to moderate cardiac risk for left hip replacement in March.." - Cardiology note (01/16/24): "Low risk" Chart Review Chart Review: Acceptable Risk for Surgery and Patient NOT seen in Pre Admission Testing History Surgery Operation Date: 04/07/24 08:50 Proposed Procedures p Right Total Hip Arthroplasty - Parveen Gomez MD Height/Weight Height: 5 ft 2 in Weight: 73.936 kg Allergies Allergy/AdvReac Type Severity Reaction Status Date / Time adhesive Allergy Intermediate Rash Verified 03/10/24 10:36 clarithromycin Allergy Intermediate Rash Verified 03/10/24 10:36 latex Allergy Intermediate Rash Verified 03/10/24 10:36 morphine Allergy Intermediate Hives, eye Verified 03/10/24 10:36 swelling Penicillins Allergy Intermediate Hives Verified 03/10/24 10:36 sulfamethoxazole [Bactrim] Allergy Intermediate Rash Verified 03/10/24 10:36 trimethoprim [Bactrim] Allergy Intermediate Rash Verified 03/10/24 10:36 chlorhexidine Allergy Mild Rash Verified 03/10/24 10:03 omeprazole Allergy Mild Itchy scalp Verified 03/10/24 10:36 pantoprazole Allergy Mild Itchy scalp Verified 03/10/24 10:36 Medications Home Medications Medication Instructions Recorded Confirmed Last Taken ascorbic acid (vitamin C) 250 mg 250 mg PO DAILY 05/01/23 03/10/24 09/10/23 chewable tablet esomeprazole magnesium 40 mg 40 mg PO QAM 05/01/23 03/10/24 09/23/23 03:15 capsule,delayed release (Nexium) evolocumab 140 mg/mL subcutaneous 140 mg subcut UD 05/01/23 03/10/24 06/30/23 pen injector (Karoline Cantu) multivitamin (Daily Multi-Vitamin 1 tab PO DAILY 05/01/23 03/10/24 09/22/23 tablet) zinc acetate 25 mg (zinc) capsule 25 mg PO DAILY PRN sickness 05/01/23 03/10/24 09/10/23 Wheeled Walker #1 ea 08/15/23 09/02/23 Unknown amino acids (Amino Acid capsule) 1 cap PO UD 09/02/23 03/10/24 Unknown acetaminophen 500 mg tablet 1,000 mg (2 x 500 mg) PO TID pain 09/21/23 03/10/24 Unknown (Tylenol Extra Strength) 30 days #180 tabs aspirin 81 mg tablet,delayed 81 mg PO BID 45 days #90 tabs 09/21/23 03/10/24 Unknown release (Emiliana Low Dose Aspirin) vitamin B complex 1 tab PO DAILY 03/10/24 03/10/24 Unknown Past Medical History Medical History Bilateral hip joint arthritis GERD (gastroesophageal reflux disease) History of COVID-19 2020- PNA > resolved Hyperlipemia Taking Repatha Past Family History Family History Mother Diabetes Father Diabetes Family history of reaction to anesthesia nausea/vomiting Grandmother (Paternal) Colon cancer Family history of reaction to anesthesia nausea/vomiting Past Surgical History Surgical History History of bladder surgery sling History of colonoscopy History of hernia repair History of hysterectomy History of tonsillectomy History of total left hip replacement Left RUDI: SAB L3-4, 1 attempt at [facility] (09/24/23) History of total left knee replacement History of total right knee replacement History of varicose vein ligation History of wisdom tooth extraction Nausea and vomiting after administration of anesthetic agent Social History Smoking Status: Never smoker Do You Dip or Chew Tobacco: No Hx Alcohol Use: No Hx Substance Use: No substance use type: does not use Lab Results Anesthesia Preop Results Results Anesthesia Widget: WBC 5.15 K/ul (4.8-10.8) 02/28/24 Hgb 12.1 g/dl (12.0-16.0) 02/28/24 Hct 36.8 % (37.0-47.0) L 02/28/24 Plt 316 K/uL (130-400) 02/28/24 Na 141 mmol/L (136-145) 02/28/24 K 4.0 mmol/L (3.5-5.1) 02/28/24 Cl 105 mmol/L (98-107) 02/28/24 CO2 29 mmol/L (21-32) 02/28/24 BUN 17 mg/dl (6-23) 02/28/24 Creat 0.53 mg/dl (0.6-1.2) L 02/28/24 Glucose Level 100 mg/dl (70-99(Fasting)) H 02/28/24 PT 10.6 Seconds (9.0-12.0) 02/28/24 PTT 27 Seconds (21-31) 02/28/24 INR 1.0 (0.9-1.1) 02/28/24 Blood Type A Positive 02/28/24 Antibody Screen NEGATIVE 02/28/24 Testing Electrocardiogram Date: 04/18/23 SR at 80bpm. Horizontal axis. Anterolateral infarct. Minimal mid-precordial repolarization disturbance secondary to infarct. Flat or low negative T in V3 V4 V5 Subsequent cardiology-ordered Echo and stress test done 06/2023* Chest X-Ray Date: 09/08/23 FINDINGS: Cardiomediastinal and hilar silhouettes are within normal limits. No pneumothorax, pleural effusion or airspace consolidation. Bones appear grossly intact. IMPRESSION: No acute process. Echocardiogram Date: 07/04/23 EF 55%. Borderline concentric LVH. Mild AI/TI. Normal pulmonary artery pressures. Stress Test Date: 07/04/23 Based upon EKG criteria, this test is negative. Based upon nuclear imaging findings there is no evidence of myocardial ischemia or infarction.
--- NOTE | 2024-04-10 10:42 | History & Physical Report ---
Date of Service April 10, 2024 Assessment & Plan (1) Bilateral hip joint arthritis: 63-year-old female last status post a bilateral knee replacements as well as a left hip replacement with advanced right hip arthritis. This is progressed over the past year. Very happy with her other joints would like to proceed with the right hip replacement. Plan: Plan on going to the operating room and do a right total hip replacement. The risks Mente this procedure once again explained to the patient in depth. She understands. She is planned and stay in the hospital overnight. Plan to discharge to home using [facility] and therapy. Take her omeprazole the morning of surgery with a sip of water. (2) History of total left hip replacement: (3) History of total left knee replacement: (4) History of total right knee replacement: History of Present Illness Chief Complaint: . Progressive persistent right hip pain and discomfort. Primary Care Provider: Arsenio Schaffer . The patient is a 63-year-old female who presents now for surgical treatment of her right hip. She got a long history of orthopedic issues and had both knees replaced in her left hip replaced more recently. Of the hips going great on the left side. She is continue to be limited by right hip and groin and thigh pain. Actually gotten worse over the past 6 months. She limps more as the day goes on. She takes medicine with minimal relief. Very happy with the left hip would like to have a right hip fixed. Allergies Allergy/AdvReac Type Severity Reaction Status Date / Time adhesive Allergy Intermediate Rash Verified 03/10/24 10:36 clarithromycin Allergy Intermediate Rash Verified 03/10/24 10:36 latex Allergy Intermediate Rash Verified 03/10/24 10:36 morphine Allergy Intermediate Hives, eye Verified 03/10/24 10:36 swelling Penicillins Allergy Intermediate Hives Verified 03/10/24 10:36 sulfamethoxazole [Bactrim] Allergy Intermediate Rash Verified 03/10/24 10:36 trimethoprim [Bactrim] Allergy Intermediate Rash Verified 03/10/24 10:36 chlorhexidine Allergy Mild Rash Verified 03/10/24 10:03 omeprazole Allergy Mild Itchy scalp Verified 03/10/24 10:36 pantoprazole Allergy Mild Itchy scalp Verified 03/10/24 10:36 Home Medications Medication Instructions Recorded Confirmed Type ascorbic acid (vitamin C) 250 mg 250 mg PO DAILY 05/01/23 03/10/24 History chewable tablet esomeprazole magnesium 40 mg 40 mg PO QAM 05/01/23 03/10/24 History capsule,delayed release (Nexium) evolocumab 140 mg/mL subcutaneous 140 mg subcut UD 05/01/23 03/10/24 History pen injector (Repatha SureClick) multivitamin (Daily Multi-Vitamin 1 tab PO DAILY 05/01/23 03/10/24 History tablet) zinc acetate 25 mg (zinc) capsule 25 mg PO DAILY PRN sickness 05/01/23 03/10/24 History Wheeled Walker #1 ea 08/15/23 09/02/23 Rx amino acids (Amino Acid capsule) 1 cap PO UD 09/02/23 03/10/24 History acetaminophen 500 mg tablet 1,000 mg (2 x 500 mg) PO TID pain 09/21/23 03/10/24 Rx (Tylenol Extra Strength) 30 days #180 tabs aspirin 81 mg tablet,delayed 81 mg PO BID 45 days #90 tabs 09/21/23 03/10/24 Rx release (Emiliana Low Dose Aspirin) vitamin B complex 1 tab PO DAILY 03/10/24 03/10/24 History Wheeled Walker #1 ea 03/29/24 Rx Past Med/Surg History Problem List Medical History Bilateral hip joint arthritis GERD (gastroesophageal reflux disease) History of COVID-19 2020- PNA > resolved Hyperlipemia Taking Repatha Surgical History History of total left hip replacement Left RUDI: SAB L3-4, [address] [facility] (09/24/23) Nausea and vomiting after administration of anesthetic agent History of bladder surgery sling History of colonoscopy History of tonsillectomy History of hernia repair History of wisdom tooth extraction History of hysterectomy History of total left knee replacement History of total right knee replacement History of varicose vein ligation Family History Mother Diabetes Father Diabetes Family history of reaction to anesthesia nausea/vomiting Grandmother (Paternal) Colon cancer Family history of reaction to anesthesia nausea/vomiting Social History Smoking Status: Never smoker Second Hand Exposure: No; Do You Dip or Chew Tobacco: No; Tobacco Cessation Education Requested by Patient: No Hx Alcohol Use: No Hx Substance Use: No Preferred Language: Bulgarian Communication Ability: Effective Home Service Technician Required: No Beliefs That Will Affect Care: None Current Living Situation: Spouse Other Information That Helps Us Care for You: No Feels Safe at Home: Yes Safety Concerns: Feels Safe At This Time Assistive Devices: Cane and Glasses Review of Systems All systems reviewed & are unremarkable except as noted in HPI & below. Physical Exam . Physical examination reveals a pleasant middle-age female. Looks to be in good health. Examination of her hips reveal patient ambulates with an antalgic gait. She limps on the right side. This right side is just slightly short compared to the left. She got pain and stiffness with hip attempted motion. Pain with internal rotation. Internal rotation to neutral at best. Negative straight leg raise. She is neurologically intact. Her knee replacement looks good below. No swelling. No pain. Examination left hip reveals well-healed incision. Once again she is just slightly long on the side compared to the opposite side. No pain with hip motion. She is neurologically intact. Constitutional WD/WN, vitals as above Respiratory normal respiratory effort, lungs clear to auscultation Cardiovascular RRR, no murmur, no edema Gastrointestinal (Abdomen) normal bowel sounds, soft, nontender, no hepatosplenomegaly Results & Data Results & Data Laboratory Results . Diagnostic Findings . X-rays of the right hip were reviewed. Shows advanced right hip arthritis. Complete loss of the joint space. It has progressed over the past 6 months. PG Care Time/CCT Total # of Minutes Spent Total Time Spent with Patient: Total time spent is greater than 50% in coordination of care (as documented) at patient's floor/unit and/or counseling patient: Coding Level of Care Code None Diagnoses Bilateral hip joint arthritis M16.0 History of total left hip replacement Z96.642 History of total left knee replacement Z96.652 History of total right knee replacement Z96.651
[2024-04-13] MEDS: LR 500ML BOLUS, THEN 15ML/HR IV SCH (06:05)
[2024-04-13] MEDS: dexAMETHasone**PF** 10 MG/ML VIAL IV SCH (06:06)
[2024-04-13] MEDS: ACETAMINOPHEN 500 MG TAB PO SCH ×2 (06:06→13:29)
[2024-04-13] MEDS: METOCLOPRAMIDE HCL 10 MG TABLET PO SCH (06:06)
[2024-04-13] MEDS: CeleBREX 200 MG CAP PO SCH (06:06)
[2024-04-13] MEDS: Scopolamine 1 MG TDSY TD SCH (06:07)
[2024-04-13] MEDS: FAMOTIDINE 20 MG TAB PO SCH (06:08)
[2024-04-13] MEDS: LR 60ML/HR IV SCH (06:09)
[2024-04-13] MEDS ORDERED: MIDAZOLAM HCL 1 MG/ML 2ML VIAL ONE ×2 (06:21→06:22)
[2024-04-13] MEDS ORDERED: fentaNYL citrate PF 100 MCG/2 ML VIAL ONE (06:22)
[2024-04-13] MEDS ORDERED: BUPIVACAINE 0.5 % 5 MG/1 ML PF 10ML VIAL ONE (06:30)
[2024-04-13] MEDS ORDERED: ROPIVACAINE 0.5% 5 MG/ML 30 ML VIAL ONE (06:32)
[2024-04-13] MEDS ORDERED: ATROPINE SULFATE 0.1 MG/ML 10ML SYR IV PRN (06:42)
[2024-04-13] MEDS ORDERED: KETOROLAC 30 MG/ML VIAL IV PRN (06:42)
[2024-04-13] MEDS ORDERED: HYDROmorphone INJ 1 MG/ML SYRINGE IV PRN (06:42)
[2024-04-13] MEDS ORDERED: ePHEDrine sulfate 50 MG/ML AMP IV PRN (06:42)
[2024-04-13] MEDS ORDERED: PROMETHAZINE HCL 6.25 MG in SODIUM CHLORIDE 0.9% 50 ML IV PRN (06:42)
--- NOTE | 2024-04-13 06:48 | History & Physical Bridge Note ---
Date of Service April 13, 2024 History & Physical Bridge Note I have examined the patient, reviewed the History & Physical and in the interval since the performance of the History & Physical I have noted the following changes of clinical significance: no changes noted
[2024-04-13] MEDS: TRANEXAMIC ACID 1,000 MG **IV Pre-op IV SCH (06:50)
[2024-04-13] MEDS: ceFAZolin 2000MG 2,000 MG/15 ML SYR IV SCH (06:59)
[2024-04-13] MEDS ORDERED: PROPOFOL IV EMULSION 10 MG/ML 100 ML VIAL IV ONE (07:53)
[2024-04-13] MEDS ORDERED: ONDANSETRON INJ 2 MG/ML 2 ML VIAL ONE (07:53)
[2024-04-13] MEDS: BUPIVACAINE/EPINEPHRINE 0.5% MPF 1:200,000 30 ML VIAL ONE (08:04)
--- NOTE | 2024-04-13 08:24 | Operative Report ---
PG Post Operative Report Pre & Post Diagnosis Operation Date: 04/13/24 07:00 Pre-Op Diagnosis: Right Hip Degenerative Joint Disease Post-Op Diagnosis: Right Hip Degenerative Joint Disease I identified the patient and participated in the time-out.: Yes Procedure Operation Date: 04/13/24 07:00 Actual Procedures p Right Total Hip Arthroplasty(Right) - Parveen Gomez MD Surgeon Parveen Gomez MD Cosmetic Chemist Clayton Gabriel PA-C Estimated Blood Loss 150 Findings Consistent with Post-Op Diagnosis Operative findings revealed advanced right hip DJD. She had grade 4 [id number] disease of the femoral head and acetabulum. Moderate-sized joint effusion. Fairly minimal osteophyte formation. Specimens Right femoral head sent for pathology. Anesthesia Type Spinal MAC Complications none Disposition Accompanied Patient To Recovery: No Indications The patient is a 63-year-old female has had a host of orthopedic issues over the years. 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 Over the past year she developed increased pain discomfort in her right hip. She failed all conservative measures. She elected proceed with surgical treatment. X-rays did show progressive right hip arthritis. Description of Procedure Operative implants consist of: 1 Biomet G7 size 48 mm acetabular shell. 2. Nelson hole plate embosser. 3. 6.5 cancellous acetabular screws 1 of 35 mm length and 1 to 20 mm length. 4. 48 mm x 32 mm highly cross-linked polyethylene liner. 5. DePuy Corail size 9 KLA femoral stem. 6. +5/32 mm ceramic articular ball. The patient was taken to the operating, identified, placed on the operating table in the supine position. All contact areas were appropriately padded. IV antibiotic 5 by anesthesia team. A spinal anesthetic had been implemented holding area. Gallegos catheter was placed in sterile fashion. The patient was then placed in the left lateral decubitus position. An axillary roll was placed. Stulberg hip positioner was used for positioning. The right hip and leg were then prepped and draped in usual sterile fashion. A posterolateral approach to the right hip was then performed to a curvilinear incision centered over the greater trochanter. Sharp dissection carried through subcutaneous tissue down to level the IT band gluteal fascia. The IT band and gluteal fascia was incised longitudinally in line with skin incision. The underlying greater bursa was excised. The piriformis and external rotators along with the posterior hip joint capsule were then released in the posterior aspect of the hip as a single layer. Great care was taken throughout the procedure protect the sciatic nerve at all times. The hip was then internally rotated. It was dislocated. Femoral neck osteotomy cut was made with Final Cut about 5 mm above the lesser trochanter. Femoral head was removed and sent for pathology. The femur was retracted anteriorly. Attention drawn the acetabulum. The acetabular labrum was excised. The pulmonary fat was excised. Sequential reaming the acetabular was then performed beginning with a size 43 and progressing up to 47. I reamed a little bit with a 48 reamer and then placed a 48 mm Biomet G7 acetabular shell in about 40 degrees lateral opening and 20 degrees of anteversion. It was fixed with two 6.5 screws. A trial liner was placed. Attention drawn the femur. The proximal femur was entered with a cookie cutter followed by canal finder. I then broached beginning with size 8 and progressing up to a 9. I could not even get the 9 quite down to the calcar cut. I did want to use the stem in order to maximize the offset. We then trialed the hip and the +5 articular ball provided full stability and appropriate leg lengths and appropriate soft tissue tension. We elect to place these implants. All trial implants were removed. Nelson hole plate embosser was placed. Highly cross- linked polyethylene liner was placed. A size 9 KLA femoral stem was impacted in position. A +5/32 mm ceramic articular ball was placed. Hip was located and once again found to be stable. Attention drawn toward closing. The wound was irrigated coconuts pulsatile lavage solution. I did inject locally with 60 cc of half percent Marcaine with epinephrine. Posterior capsule and external rotators then repaired through drill holes in the posterior trochanter with #2 Tycron suture. The IT band gluteal fascia then closed in 1 PDS suture running fashion. The subcutaneous tissues were closed with 2 layers of the deep layer #2 Vicryl suture in the subcutaneous tissues with 2-0 Dexon suture in a buried interrupted fashion. Skin was closed skin anirudh. Leg was then cleaned and dried. A Prevena VAC dressing was applied. The patient was then transferred to the recovery room in stable condition. The patient tolerated the procedure well and there were no complications. Clayton Gabriel, my physician assistant project manager, was present for the entire procedure. His assistance was essential and required for appropriate patient positioning, prepping and draping, surgical exposure, performing the technical details of the operation, placement the implants, closure of the wound, and placement of the sterile bandage. I attest to the content of the Intraoperative Record and any orders documented therein. Any exceptions are noted below.
[2024-04-13] MEDS ORDERED: bisacodyL 10 MG SUPP PR PRN (09:27)
[2024-04-13] MEDS ORDERED: HYDROmorphone INJ 0.5 MG/0.5 ML SYR IV PRN (09:27)
[2024-04-13] MEDS ORDERED: NON-FORMULARY MEDICATION (Multivitamin [Daily Multi-Vitamin] tablet) PO SCH (09:27)
[2024-04-13] MEDS ORDERED: NON-FORMULARY MEDICATION (Evolocumab [Repatha Sureclick] 140 mg/mL pen injector) SQ SCH (09:27)
[2024-04-13] MEDS ORDERED: NON-FORMULARY MEDICATION (Amino Acids [Amino Acid] Capsule) PO SCH (09:27)
[2024-04-13] MEDS ORDERED: ASCORBIC ACID 250 MG PO SCH (09:27)
[2024-04-13] MEDS ORDERED: MAGNESIUM HYDROXIDE SUSP 30 ML UDC PO PRN (09:27)
[2024-04-13] MEDS ORDERED: diphenhydrAMINE Capsule 25 MG CAP PO PRN (09:27)
[2024-04-13] MEDS ORDERED: METOCLOPRAMIDE HCL INJ 5 MG/ML 2 ML VIAL IV PRN (09:27)
[2024-04-13] MEDS ORDERED: NALOXONE HCL 0.4 MG/1 ML VIAL/CARP IV PRN (09:27)
[2024-04-13] MEDS ORDERED: ALUMINUM/MAGNESIUM SUSP 30 ML UDC PO PRN (09:27)
[2024-04-13] MEDS ORDERED: ONDANSETRON INJ 2 MG/ML 2 ML VIAL IV PRN (09:27)
[2024-04-13] MEDS ORDERED: traMADol HCL 50 MG TABLET PO PRN (09:27)
[2024-04-13] MEDS: SODIUM CHLORIDE 0.9% 1,000 ML IV SCH (10:03)
[2024-04-13] MEDS: ASPIRIN 81 MG ECTAB PO SCH (10:04)
[2024-04-13] MEDS: VITAMIN B COMPLEX TAB PO SCH (10:04)
[2024-04-13] MEDS: DOCUSATE SODIUM 100 MG CAP PO SCH (10:04)
[2024-04-13] MEDS: KETOROLAC 30 MG/ML VIAL IV SCH (10:05)
[2024-04-13] MEDS: MULTIVITAMIN TAB PO SCH (10:05)
[2024-04-13] MEDS: SENNA 8.6 MG TAB PO SCH (10:05)
--- NOTE | 2024-04-13 10:37 | Anesthesiology Progress Note ---
Date of Service April 13, 2024 Anesthesia Post Procedure Vital Signs Vital Signs: Temp Pulse Pulse Resp BP Pulse Ox O2 Del Method 04/13/24 10:01 36.5 C 71 16 117/73 97 Room Air 04/13/24 09:30 36.4 C L 82 18 128/76 94 Room Air 04/13/24 09:00 36.6 C 79 18 124/62 94 Room Air 04/13/24 08:45 76 20 127/52 L 98 Oxymask 04/13/24 08:35 79 16 131/56 L 99 Oxymask 04/13/24 08:25 85 22 133/58 L 99 Oxymask 04/13/24 08:18 36.8 C 90 12 134/56 L 99 Oxymask 04/13/24 05:47 36.7 C 77 16 151/66 H 96 Room Air O2 Flow Rate 04/13/24 10:01 04/13/24 09:30 04/13/24 09:00 04/13/24 08:45 2 04/13/24 08:35 2 04/13/24 08:25 3 04/13/24 08:18 5 04/13/24 05:47 Transfer of Care Handoff Completed per policy Notes Mental Status: alert / awake / arousable Patient Amnestic to Procedure: Yes Nausea / Vomiting: adequately controlled Pain: adequately controlled Airway Patency, RR, SpO2: stable & adequate BP & HR: stable & adequate Hydration State: stable & adequate Neuraxial Anesthesia: was administered and sensory block is resolving Anesthetic Complications: no major complications apparent
--- NOTE | 2024-04-13 11:16 | XRay Report ---
SINGLE VIEW PELVIS; SINGLE VIEW RIGHT HIP CLINICAL HISTORY: Postoperative examination. FINDINGS: An AP portable view of the hips and pelvis with a crosstable lateral portable view of the r ight hip are compared to study dated 01/09/2024. A bipolar right hip arthroplasty is in near-anatomic alignment. At least 2 cortical lag screws transfix the acetabular cup. No acute fracture is identifie d. There are expected postoperative changes overlying the right hip including skin clips, subcutaneou s gas, and soft tissue swelling. A left hip arthroplasty is unchanged in position. Sclerotic change i s noted in the sacroiliac joints. A Gallegos catheter is in place. IMPRESSION: Expected postoperative findings status post right hip arthroplasty. No acute fracture is seen. ACT 112: Negative or not required by law. Electronically signed by: Christos Wiley M.D. 04/13/2024 11:14 AM
[2024-04-13] MEDS: TRANEXAMIC ACID / 0.7% NACL 1,000 MG/100 ML BAG IV SCH (13:30)
[2024-04-13] MEDS: ceFAZolin 1000MG 1,000 MG/7.5 ML SYR IV SCH (14:47)
[2024-04-13] MEDS: Scopolamine CHECK PATCH PLACEMENT SCH (14:48)
[2024-04-13] MEDS: ASCORBIC ACID 500 MG TAB PO SCH (16:16)
[2024-04-13] MEDS ORDERED: SENNA 8.6 MG TAB PO SCH (21:00)
--- NOTE | 2024-04-14 07:12 | Orthopedic Progress Note ---
Date of Service April 14, 2024 Assessment & Plan (1) S/P total right hip arthroplasty: Doing well. d/c planning, home with home health today after PT PT/OT wbat, total hip precautions Dressing: leave in place for 7 days dvt prophylaxis: teds, scds, aspirin Will discuss with Dr Jason Curtis . 63 year old patient POD #1 from right lidia. Doing well. Slept okay last night. Not having pain. No other complaints. Review of Systems All systems reviewed & are unremarkable except as noted in HPI & below. Physical Exam .alert and oriented. NAD. VSS Right hip: Prevena vac dressing in place. Hip located. Able to dorsiflex and plantarflex. NVI Results & Data Results & Data Laboratory Results . Diagnostic Findings . PG Care Time/CCT Total # of Minutes Spent Total Time Spent with Patient: Total time spent is greater than 50% in coordination of care (as documented) at patient's floor/unit and/or counseling patient: Coding Level of Care Code 57181 Post Operative Follow-Up Diagnoses S/P total right hip arthroplasty Z96.641
[2024-04-14] MEDS: dexAMETHasone 10 MG in SYRINGE 0 ML IV SCH (08:16)
[2024-04-14 09:01] LABS: Basophils # (auto) 0.02 K/uL (0.00-0.20); Basophils % (auto) 0.2 %; Eosinophils # (auto) 0.01 K/uL (0.00-0.50); Eosinophils % (auto) 0.1 %; Hematocrit (blood only) 33.9 % (37.0-47.0); Hemoglobin 10.7 g/dl (12.0-16.0); Immature Granulocytes # (auto) 0.04 K/uL (0.01-0.20); Immature Granulocytes % (auto) 0.4 %; Lymphocytes # (auto) 1.78 K/uL (1.20-3.40); Lymphocytes % (auto) 18.3 %; Mean Corpuscular Hemoglobin 29.1 pg (25.0-34.0); Mean Corpuscular Hgb Conc 31.6 g/dL (32.0-36.0); Mean Corpuscular Volume 92.1 fL (80.0-100.0); Mean Platelet Volume 10.3 fL (9.4-12.4); Monocytes # (auto) 0.45 K/uL (0.11-0.59); Monocytes % (auto) 4.6 %; Neutrophils # (auto) 7.42 K/uL (1.40-6.50); Neutrophils % (auto) 76.4 %; Platelet Count 280 K/uL (130-400); RDW Coefficient of Variation 13.8 % (11.5-14.5); RDW Standard Deviation 47.5 fL (36.4-46.3); Red Blood Count 3.68 M/uL (4.20-5.40); White Blood Count 9.72 K/ul (4.8-10.8)
[2024-04-14 09:28] LABS: BUN Creatinine Ratio 17.8 (10-20); Calcium 9.4 mg/dl (8.6-10.3); Est GFR (African American) 101.6 ml/min; Est GFR (Non-African American) 87.7 ml/min; Potassium 3.5 mmol/L (3.5-5.1)
== END 2024-04-14 11:46 | disposition home health service (06) ==
LOC: ASU 05:15 → 3E 05:15